=== PATIENT | male | born 1965 | race African-American/Black ===

== ENCOUNTER 2018-06-20 12:18 | Inpatient (IN) | payer OTHER ==
[2018-06-20 14:14] VITALS: BMI 32.1
--- NOTE | 2018-06-20 15:09 | HP ---
CIWA Score Nausea/Vomitin-No Nausea/No Vomiting Muscle Tremors: 1-None Visible, but [place] Anxiety: 3 Agitation: 0-Normal Activity Paroxysmal Sweats: 2 Orientation: 0-Oriented Tacttile Disturbances: 0-None Auditory Disturbances: 0-None Visual Disturbances: 2-Mild Sensitivity Headache: 0-None Present CIWA-Ar Total Score: 8 - Admission Criteria OASAS Guidelines: Admission for Medically Managed Detox: Requires at least one of the followin. CIWA greater than 12 2. Seizures within the past 24 hours 3. Delirium tremens within the past 24 hours 4. Hallucinations within the past 24 hours 5. Acute intervention needed for co occurring medical disorder 6. Acute intervention needed for co occurring psychiatric disorder 7. Severe withdrawal that cannot be handled at a lower level of care (continued vomiting, continued diarrhea, abnormal vital signs) requiring intravenous medication and/or fluids 8. Patient presents the following: Acute intervention needed for co-occurring med or psych disorder Admission Criteria Met: Admission criteria met Admission ROS [facility] - [facility] Chief Complaint: " alcohol detox, i don't want to get the shakes " Allergies/Adverse Reactions: Allergies Allergy/AdvReac Type Severity Reaction Status Date / Time No Known Allergies Allergy Verified 06/20/18 14:03 History of Present Illness: 52 yo male with hx of nicotine, cocaine, THC and alcohol dependence is here seeking detox. Reports for time seeking treatment. PMHX: HTN, left hip replacement, pending right hip replacement with chronic pain. reports possible Lupus dx, needs to follow up with PCP. Psych: anxiety and depression reports on meds. Denies suicidal / homicidal ideation. Exam Limitations: No Limitations - Ebola screening Have you traveled outside of the country in the last 21 days: No (N) Have you had contact with anyone from an Ebola affected area: No Do you have a fever: No - Review of Systems Constitutional: Chills, Unintentional Wgt. Loss, Other (fatigue) EENT: reports: No Symptoms Reported Respiratory: reports: No Symptoms reported Cardiac: reports: No Symptoms Reported GI: reports: Poor Appetite, Poor Fluid Intake, Indigestion : reports: No Symptoms Reported Musculoskeletal: reports: Back Pain, Other (hip pain) Integumentary: reports: No Symptoms Reported Neuro: reports: No Symptoms reported Endocrine: reports: Increased Thirst Hematology: reports: No Symptoms Reported Psychiatric: reports: Orientated x3, Anxious Other Systems: Reviewed and Negative Patient History - Patient Medical History Hx Anemia: No Hx Asthma: No Hx Chronic Obstructive Pulmonary Disease (COPD): No Hx Cancer: No Hx Cardiac Disorders: No Hx Congestive Heart Failure: No Hx Hypertension: Yes Hx Hypercholesterolemia: No Hx Pacemaker: No HX Cerebrovascular Accident: Yes (2017) Hx Seizures: No Hx Dementia: No Hx Diabetes: No Hx Gastrointestinal Disorders: No Hx Liver Disease: No Hx Genitourinary Disorders: No Hx Sexually Transmitted Disorders: No Hx Renal Disease (ESRD): No Hx Thyroid Disease: No Hx Human Immunodeficiency Virus (HIV): No Hx Hepatitis C: No Hx Depression: Yes Hx Suicide Attempt: No Hx Bipolar Disorder: No Hx Schizophrenia: No - Patient Surgical History Past Surgical History: Yes Other Surgical History: left hip replacement - PPD History Previous Implant?: No Documented Results: Negative w/o proof PPD to be Administered?: Yes - Smoking Cessation Smoking history: Current every day smoker Have you smoked in the past 12 months: Yes Aproximately how many cigarettes per day: 7 Hx Chewing Tobacco Use: No Initiated information on smoking cessation: Yes 'Breaking Loose' booklet given: 06/20/18 - Substance & Tx. History Hx Alcohol Use: Yes Hx Substance Use: Yes Substance Use Type: Alcohol, Cocaine Hx Substance Use Treatment: No - Substances abused Alcohol Substance route: Oral Frequency: Daily Amount used: 2 pt. aiyana, 1 six pk beer (12 oz bottle) Age of first use: 17 Date of last use: 06/17/18 Cocaine Substance route: Smoking Frequency: Daily Amount used: 3 -4 grams a week Age of first use: 17 Date of last use: 06/18/18 Family Disease History - Family Disease History Family Disease History: [place]: Father (albert, ) Admission Physical Exam BHS - Vital Signs Vital Signs: Vital Signs - 24 hr 06/20/18 06/20/18 14:08 14:50 Temperature 98 F 98 F Pulse Rate 89 89 Respiratory 18 18 Rate Blood Pressure 164/97 164/97 - Physical General Appearance: Yes: Appropriately Dressed, Obese, Sweating, Anxious HEENTM: Yes: EOMI, Hearing grossly Normal, Normal ENT Inspection, Normocephalic , Normal Voice, GEETHA, Pharynx Normal, Tm's normal Respiratory: Yes: Chest Non-Tender, Lungs Clear, Normal Breath Sounds, No Respiratory Distress, No Accessory Muscle Use Neck: Yes: Within Normal Limits Breast: Yes: Breast Exam Deferred Cardiology: Yes: Regular Rhythm, Regular Rate Abdominal: Yes: Normal Bowel Sounds, Non Tender, Soft, Protuberent Genitourinary: Yes: Within Normal Limits Back: Yes: Normal Inspection Musculoskeletal: Yes: full range of Motion, Gait Steady, Pelvis Stable, Other ( right hip pain) Extremities: Yes: Normal Capillary Refill, Normal Inspection, Normal Range of Motion Neurological: Yes: laboratory veterinarian II-XII NML intact, Fully Oriented, Alert, Motor Strength 5/5, Normal Response, Depressed Affect Integumentary: Yes: Normal Color, Warm, Diaphoresis Lymphatic: Yes: Within Normal Limits - Diagnostic (1) Alcohol dependence with uncomplicated withdrawal Current Visit: Yes Status: Acute (2) Right hip pain Current Visit: Yes Status: Acute (3) Use of cane as ambulatory aid Current Visit: Yes Status: Acute (4) Hypertension Current Visit: Yes Status: Acute (5) Elevated blood pressure reading in office with diagnosis of hypertension Current Visit: Yes Status: Acute Cleared for Admission [facility] - Detox or Rehab [facility] Level of Care: Medically Managed Detox Regimen/Protocol: Librium Breathalyzer - Breathalyzer Breathalyzer: 0 Urine Drug Screen - Test Device Lot number: [id number] Expiration date: 02/09/20 - Control Is test valid?: Yes - Results Drug screen NEGATIVE: No Urine drug screen results: THC-Marijuana, ALBERT-Cocaine, MET-Methamphetamine, BZO- Benzodiazepines Inpatient Rehab Admission - Rehab Decision to Admit Inpatient rehab admission?: No
[2018-06-20] MEDS ORDERED: MENTHOL/PHENOL 1 EACH UD MM PRN (15:33)
[2018-06-20] MEDS ORDERED: MAG HYDROX/AL HYDROX/SIMETH 30 ML UNIT-DOSE CUP PO PRN (15:33)
[2018-06-20] MEDS ORDERED: ACETAMINOPHEN 325 MG TABLET (FP) PO PRN ×2 (15:33)
[2018-06-20] MEDS ORDERED: MAGNESIUM CITRATE 300 ML BOTTLE PO PRN (15:33)
[2018-06-20] MEDS ORDERED: IBUPROFEN 400 MG TABLET (FP) PO PRN (15:33)
[2018-06-20] MEDS ORDERED: MAGNESIUM HYDROX 2400MG/30ML ORAL SUSPENSION 30 ML CUP PO PRN (15:33)
[2018-06-20] MEDS ORDERED: NICOTINE POLACRILEX 2 MG GUM BUC PRN (15:33)
[2018-06-20] MEDS ORDERED: MELATONIN 5 MG TABLETS PO PRN (15:33)
[2018-06-20] MEDS ORDERED: BISMUTH SUBSALICYLATE 524 MG/30 ML UD PO PRN (15:33)
[2018-06-20] MEDS ORDERED: METHOCARBAMOL 500 MG TABLET PO PRN (15:33)
[2018-06-20] MEDS: chlordiazePOXIDE HCL 10 MG CAPSULE PO PRN (17:33)
[2018-06-20] MEDS: chlordiazePOXIDE HCL 25 MG CAPSULE PO SCH (22:21)
[2018-06-20] MEDS: ENALAPRIL MALEATE 10 MG TABLET (FP) PO SCH (22:22)
[2018-06-20] MEDS: THIAMINE HCL 100 MG TABLET (FP) PO SCH (22:25)
[2018-06-21] MEDS: chlordiazePOXIDE HCL 25 MG CAPSULE PO SCH ×2 (06:16→12:48)
[2018-06-21 09:47] LABS: HEMATOCRIT 39.1 % (35.4-49); HEMOGLOBIN 13.2 GM/dL (11.7-16.9); MCH 29.4 pg (25.7-33.7); MCHC 33.6 g/dl (32.0-35.9); MEAN CELL VOLUME 87.5 fl (80-96); MEAN PLT VOLUME 8.3 fl (7.5-11.1); PLATELET COUNT 147 K/MM3 (134-434); RBC 4.47 M/mm3 (4.00-5.60); RDW 13.9 % (11.9-15.9); WHITE BLOOD COUNT 5.9 K/mm3 (4.0-10.0)
[2018-06-21 10:02] LABS: ALBUMIN 3.1 g/dl (3.4-5.0); ALK PHOS 94 U/L (45-117); ANION GAP 7 MMOL/L (8-16); BILIRUBIN,TOTAL 0.8 mg/dL (0.2-1); BLOOD UREA NITROGEN 25 mg/dL (7-18); CALCIUM 8.3 mg/dL (8.5-10.1); CHLORIDE 105 mmol/L (98-107); CO2 29 mmol/L (21-32); CREATININE 1.4 mg/dL (0.55-1.3); GLUCOSE,RANDOM 117 mg/dL (74-106); SGOT/AST 19 U/L (15-37); SGPT/ALT 15 U/L (13-61); SODIUM 141 mmol/L (136-145); TOT PROT 7.4 g/dl (6.4-8.2)
[2018-06-21] MEDS: PRENATAL VITAMINS W/ FOLIC ACID TABLET (FP) PO SCH (10:22)
[2018-06-21] MEDS: ENALAPRIL MALEATE 10 MG TABLET (FP) PO SCH ×3 (10:22→22:43)
[2018-06-21] MEDS: NICOTINE 14 MG/24 HOURS TOPICAL PATCH TD SCH (10:22)
--- NOTE | 2018-06-21 10:27 | EKG ---
Test Reason : Blood Pressure : / mmHG Vent. Rate : 092 BPM Atrial Rate : 092 BPM P-R Int : 154 ms QRS Dur : 090 ms QT Int : 356 ms P-R-T Axes : 079 097 -09 degrees QTc Int : 440 ms NORMAL SINUS RHYTHM WITH SINUS ARRHYTHMIA RIGHTWARD AXIS ABNORMAL QRS-T ANGLE, CONSIDER PRIMARY T WAVE ABNORMALITY ABNORMAL ECG NO PREVIOUS ECGS AVAILABLE Confirmed by ELYSE HINDS, GUIDO ([id number]) on 06/21/2018 10:26:51 AM Referred By: Confirmed By:GUIDO PAPPAS MD
--- NOTE | 2018-06-21 17:14 | PN ---
[facility] CIWA - CIWA Score Nausea/Vomitin-No Nausea/No Vomiting Muscle Tremors: 3 Anxiety: 2 Agitation: 0-Normal Activity Paroxysmal Sweats: 2 Orientation: 0-Oriented Tacttile Disturbances: 3-Moderate Itch/Numb/Burn Auditory Disturbances: 2-Mild Harshness/Frighten Visual Disturbances: 0-None Headache: 0-None Present CIWA-Ar Total Score: 12 BHS Progress Note (SOAP) Subjective: Tremors, Sweating, Fatigue. Objective: PATIENT A & O X 3. IN NO ACUTE DISTRESS. PATIENT DENIES CHEST PAIN. 06/21/18 17:11 Vital Signs Temperature 98.0 F 06/21/18 13:22 Pulse Rate 50 L 06/21/18 13:22 Respiratory Rate 18 06/21/18 13:22 Blood Pressure 168/94 06/21/18 13:22 O2 Sat by Pulse Oximetry (%) Laboratory Tests 06/21/18 06/21/18 06/21/18 07:00 07:00 07:00 WBC 5.9 RBC 4.47 Hgb 13.2 Hct 39.1 MCV 87.5 MCH 29.4 MCHC 33.6 RDW 13.9 Plt Count 147 MPV 8.3 Sodium 141 Potassium 4.0 Chloride 105 Carbon Dioxide 29 Anion Gap 7 L BUN 25 H Creatinine 1.4 H Creat Clearance w eGFR 53.64 Random Glucose 117 H Calcium 8.3 L Total Bilirubin 0.8 AST 19 ALT 15 Alkaline Phosphatase 94 Total Protein 7.4 Albumin 3.1 L RPR Titer Nonreactive LABS NOTED. Assessment: 06/21/18 17:11 WITHDRAWAL SYMPTOMS. HYPERTENSION. Plan: CONTINUE DETOX. INCREASE DAILY PO FLUID INTAKE. INCREASE DOSE OF ENALAPRIL TO 20 MG PO BID FOR ELEVATED BP DESPITE PREVIOUS TREATMENT. D/C IBUPROFEN AND MAGNESIUM-CONTAINING MEDS. FOR ABNORMAL ADMISSION RENAL LAB VALUES.
[2018-06-21] MEDS: chlordiazePOXIDE HCL 10 MG CAPSULE PO PRN (18:05)
[2018-06-21] MEDS ORDERED: ENALAPRIL MALEATE 10 MG TABLET (FP) PO SCH (22:00)
[2018-06-21] MEDS: chlordiazePOXIDE 5 MG CAPSULE PO SCH (22:43)
[2018-06-21] MEDS: THIAMINE HCL 100 MG TABLET (FP) PO SCH (22:43)
[2018-06-22] MEDS: chlordiazePOXIDE 5 MG CAPSULE PO SCH ×2 (06:03→12:58)
[2018-06-22] MEDS: NICOTINE 14 MG/24 HOURS TOPICAL PATCH TD SCH (10:13)
[2018-06-22] MEDS: ENALAPRIL MALEATE 10 MG TABLET (FP) PO SCH ×2 (10:13→22:41)
[2018-06-22] MEDS: PRENATAL VITAMINS W/ FOLIC ACID TABLET (FP) PO SCH (10:13)
--- NOTE | 2018-06-22 13:15 | PN ---
S CIWA - CIWA Score Nausea/Vomitin-No Nausea/No Vomiting Muscle Tremors: 2 Anxiety: 1-Mildly Anxious Agitation: 0-Normal Activity Paroxysmal Sweats: 3 Orientation: 0-Oriented Tacttile Disturbances: 2-Mild Itch/Numbness/Burn Auditory Disturbances: 0-None Visual Disturbances: 2-Mild Sensitivity Headache: 0-None Present CIWA-Ar Total Score: 10 BHS Progress Note (SOAP) Subjective: Tremors, Sweating, Fatigue. Objective: PATIENT A & O X 3. IN NO ACUTE DISTRESS. 06/22/18 13:14 Vital Signs Temperature 99.1 F 06/22/18 06:09 Pulse Rate 92 H 06/22/18 09:28 Respiratory Rate 18 06/22/18 09:28 Blood Pressure 150/89 06/22/18 09:28 O2 Sat by Pulse Oximetry (%) Laboratory Tests 06/21/18 06/21/18 06/21/18 07:00 07:00 07:00 WBC 5.9 RBC 4.47 Hgb 13.2 Hct 39.1 MCV 87.5 MCH 29.4 MCHC 33.6 RDW 13.9 Plt Count 147 MPV 8.3 Sodium 141 Potassium 4.0 Chloride 105 Carbon Dioxide 29 Anion Gap 7 L BUN 25 H Creatinine 1.4 H Creat Clearance w eGFR 53.64 Random Glucose 117 H Calcium 8.3 L Total Bilirubin 0.8 AST 19 ALT 15 Alkaline Phosphatase 94 Total Protein 7.4 Albumin 3.1 L RPR Titer Nonreactive LABS NOTED. Assessment: 06/22/18 13:14 WITHDRAWAL SYMPTOMS. HYPERTENSION. Plan: CONTINUE DETOX. CONTINUE TO MONITOR BP.
[2018-06-22] MEDS ORDERED: chlordiazePOXIDE HCL 10 MG CAPSULE PO PRN (21:00)
[2018-06-22] MEDS: chlordiazePOXIDE HCL 10 MG CAPSULE PO SCH (22:40)
[2018-06-22] MEDS: THIAMINE HCL 100 MG TABLET (FP) PO SCH (22:41)
[2018-06-23] MEDS: chlordiazePOXIDE HCL 10 MG CAPSULE PO SCH (06:02)
[2018-06-23 09:28] VITALS: BP 147/93; PULSE 84; TEMP 98.1
[2018-06-23] MEDS: ENALAPRIL MALEATE 10 MG TABLET (FP) PO SCH (10:40)
[2018-06-23] MEDS: NICOTINE 14 MG/24 HOURS TOPICAL PATCH TD SCH (10:40)
[2018-06-23] MEDS: PRENATAL VITAMINS W/ FOLIC ACID TABLET (FP) PO SCH (10:40)
--- NOTE | 2018-06-23 10:45 | DS ---
[facility] Detox Discharge Summary Admission Date: 06/20/18 Discharge Date: 06/23/18 - History Present History: Alcohol Dependence Additional Comments: 52 years old male admitted on 06/20/18 for alcohol withdrawal stabilizatin feeling better today preferring begin alcohol rehab today ambulate with cane steady gait alert no acute distress denies suicidal ideation Pertinent Past History: patient wants to leave the detox today instead of tomorrow encourage bring in medication list and lab report to aftercare appointment - Physical Exam Results Vital Signs: Vital Signs Temperature 98.1 F 06/23/18 09:27 Pulse Rate 84 06/23/18 09:27 Respiratory Rate 20 06/23/18 09:27 Blood Pressure 147/93 06/23/18 09:27 O2 Sat by Pulse Oximetry (%) Pertinent Admission Physical Exam Findings: alcohol withdrawal sx Laboratory Last Values WBC 5.9 K/mm3 (4.0-10.0) 06/21/18 07:00 RBC 4.47 M/mm3 (4.00-5.60) 06/21/18 07:00 Hgb 13.2 GM/dL (11.7-16.9) 06/21/18 07:00 Hct 39.1 % (35.4-49) 06/21/18 07:00 MCV 87.5 fl (80-96) 06/21/18 07:00 MCH 29.4 pg (25.7-33.7) 06/21/18 07:00 MCHC 33.6 g/dl (32.0-35.9) 06/21/18 07:00 RDW 13.9 % (11.9-15.9) 06/21/18 07:00 Plt Count 147 K/MM3 (134-434) 06/21/18 07:00 MPV 8.3 fl (7.5-11.1) 06/21/18 07:00 Sodium 141 mmol/L (136-145) 06/21/18 07:00 Potassium 4.0 mmol/L (3.5-5.1) 06/21/18 07:00 Chloride 105 mmol/L (98-107) 06/21/18 07:00 Carbon Dioxide 29 mmol/L (21-32) 06/21/18 07:00 Anion Gap 7 MMOL/L (8-16) L 06/21/18 07:00 BUN 25 mg/dL (7-18) H 06/21/18 07:00 Creatinine 1.4 mg/dL (0.55-1.3) H 06/21/18 07:00 Creat Clearance w eGFR 53.64 (>60) 06/21/18 07:00 Random Glucose 117 mg/dL (74-106) H 06/21/18 07:00 Calcium 8.3 mg/dL (8.5-10.1) L 06/21/18 07:00 Total Bilirubin 0.8 mg/dL (0.2-1) 06/21/18 07:00 AST 19 U/L (15-37) 06/21/18 07:00 ALT 15 U/L (13-61) 06/21/18 07:00 Alkaline Phosphatase 94 U/L (45-117) 06/21/18 07:00 Total Protein 7.4 g/dl (6.4-8.2) 06/21/18 07:00 Albumin 3.1 g/dl (3.4-5.0) L 06/21/18 07:00 RPR Titer Nonreactive (NONREACTIVE) 06/21/18 07:00 lab noted - Treatment Hospital Course: Detox Protocol Followed, Detoxed Safely, Responded well, Discharged Condition Good, Rehab Referral Accepted Patient has Accepted [facility] - Medication Discharge Medications: Ambulatory Orders Enalapril Maleate [Vasotec -] 10 mg PO BID 06/20/18 - Diagnosis (1) Alcohol dependence with uncomplicated withdrawal Current Visit: Yes Status: Acute (2) Hypertension Current Visit: Yes Status: Chronic Qualifiers: Hypertension type: essential hypertension Qualified Code(s): I10 - Essential (primary) hypertension (3) Use of cane as ambulatory aid Current Visit: Yes Status: Chronic - AMA Did Patient Leave Against Medical Advice: No
== END 2018-06-23 09:45 | disposition home or self-care (01) | DRG 775 ==
LOC: YASAS 12:18 → Y3N 17:10
PROVIDERS: ADMIT Surgery; ATTEND Surgery
PROC: HZ2ZZZZ Detoxification Services for Substance Abuse Treatment (ICD-10-PCS; principal; 2018-06-20)
DX: F10.230 Alcohol dependence with withdrawal, uncomplicated (principal); F41.8 Other specified anxiety disorders; F32.9 Major depressive disorder, single episode, unspecified; I10 Essential (primary) hypertension; M25.551 Pain in right hip; Z99.89 Dependence on other enabling machines and devices; Z96.642 Presence of left artificial hip joint; Z86.73 Personal history of transient ischemic attack (TIA), and cerebral infarction without residual deficits
CPT/HCPCS: 36415; 80053; 85027; 86593; 93005; 93010